=== PATIENT | male | born 1945 | race Caucasian/White ===

== ENCOUNTER 2023-10-08 21:30 | Emergency (ER) | payer OTHER ==
[~2023-10-08] VITALS: Ht 165.1 cm; Wt 83.9 kg
[2023-10-08 21:42] VITALS: BP 177/99
[2023-10-08] MEDS ORDERED: AMLO10 PO (21:43)
[2023-10-08] MEDS ORDERED: LIPITOR10 MG PO (21:44)
[2023-10-08] MEDS ORDERED: COREG6.25 MG PO (21:44)
[2023-10-08] MEDS ORDERED: LISI20 PO (21:44)
[2023-10-08] MEDS ORDERED: TORS10 PO (21:45)
[2023-10-08] MEDS ORDERED: TAMS.4ER PO (21:45)
[2023-10-08] MEDS ORDERED: ZYRTEC10 M1 PO (21:45)
== END 2023-10-08 21:51 | disposition home or self-care (01) ==
LOC: ER 21:30
DX: I10 Essential (primary) hypertension (principal); Z79.899 Other long term (current) drug therapy; E78.5 Hyperlipidemia, unspecified
CPT/HCPCS: 99282

== ENCOUNTER 2023-12-13 15:25 | Emergency (ER) | payer OTHER ==
[~2023-12-13] VITALS: Ht 162.6 cm; Wt 90.7 kg
[~2023-12-13 15:25] MED LIST: AMLO10 PO; COREG6.25 MG PO; LIPITOR10 MG PO; LISI20 PO; TAMS.4ER PO; TORS10 PO; ZYRTEC10 M1 PO
[2023-12-13] MEDS ORDERED: Acetaminophen 500 MG Tab PO ONE (15:40)
[2023-12-13] MEDS ORDERED: NS 1,000 ML IV SCH (15:40)
[2023-12-13 15:58] LABS: BASOPHILS ABSOLUTE AUTO 0.02 K/mm3 (0.00-0.23); BASOPHILS PERCENT AUTO 0 % (0-2); EOSINOPHILS PERCENT AUTO 0 % (0-6); Hematocrit 41.1 % (37.0-53.0); Hemoglobin 14.2 g/dL (13.5-17.5); IMMATURE GRAN ABSOLUTE AUTO 0.05 K/mm3 (0.00-0.10); IMMATURE GRAN PERCENT AUTO 1 % (0-1); LYMPHOCYTES ABSOLUTE AUTO 0.29 K/mm3 (0.84-5.20); LYMPHOCYTES PERCENT AUTO 4 % (21-46); MONOCYTES ABSOLUTE AUTO 0.09 K/mm3 (0.16-1.47); MONOCYTES PERCENT AUTO 1 % (4-13); Mean Corpuscular HGB 30.8 pg (26.0-34.0); Mean Corpuscular HGB Conc 34.5 g/dL (31.5-36.5); Mean Corpuscular Volume 89 fL (80-100); Mean Platelet Volume 10.3 fL (9.1-12.4); NEUTROPHILS ABSOLUTE AUTO 7.66 K/mm3 (1.96-9.15); NEUTROPHILS PERCENT AUTO 95 % (41-73); Platelet Count 130 K/mm3 (150-400); RDW Coefficient Variation 14.2 % (11.7-14.2); RDW Standard Deviation 46.2 fL (35.1-46.3); Red Blood Cell Count 4.61 M/mm3 (4.30-5.90); White Blood Cell Count 8.11 K/mm3 (4.00-11.30)
[2023-12-13 16:17] LABS: Albumin, Blood 3.4 g/dL (3.4-5.0); Albumin/Globulin Ratio 0.9 (0.8-1.8); Bilirubin, Total 4.4 mg/dL (0.1-1.0); Bun/Creatinine Ratio 15.9 (12.0-20.0); Calcium, Blood 8.3 mg/dL (8.5-10.1); Creatinine, Blood 1.82 mg/dL (0.60-1.20); Globulin, Blood 3.6 g/dL (2.2-4.0); Magnesium, Blood 1.5 mg/dL (1.6-2.4); Potassium, Blood 3.1 mmol/L (3.5-5.5)
[2023-12-13 16:19] LABS: Source, Urine Clean Catch
[2023-12-13 16:22] LABS: Appearance, Urine Clear (Clear); Bilirubin, Urine Neg (Neg); Blood, Urine 3+ (Neg); Color, Urine Yellow (P-Yellow); Glucose Qualitative, Urine 1+ (Neg); Ketones, Urine Neg (Neg); Leukocyte Esterase, Urine Neg (Neg); Nitrite, Urine Neg (Neg); Protein, Urine 3+ (Neg); Urobilinogen, Urine NORM (Normal)
[2023-12-13 16:29] LABS: Bacteria Few /hpf; Squamous Epithelial Cells Rare /hpf (Few)
[2023-12-13 16:30] LABS: Amorphous Light (0-Heavy); Renal Epithelial Rare /hpf (0-Rare); White Blood Cells, Urine 0-2 /hpf (0-5)
[2023-12-13 18:00] VITALS: BP 107/56
== END 2023-12-13 18:51 | disposition home or self-care (01) ==
LOC: ER 15:25
PROVIDERS: Emergency Medicine
DX: T67.5XXA Heat exhaustion, unspecified, initial encounter (principal); I12.9 Hypertensive chronic kidney disease with stage 1 through stage 4 chronic kidney disease, or unspecified chronic kidney disease; N18.9 Chronic kidney disease, unspecified; R94.5 Abnormal results of liver function studies; E78.5 Hyperlipidemia, unspecified; Z79.899 Other long term (current) drug therapy
CPT/HCPCS: 36415; 51702; 70450; 71045; 80053; 81001; 82550; 83605; 83735; 85025; 87040; 87077; 87186; 93005; 93010; 96360; 96361; 99285-25; A9270; J7030

== ENCOUNTER 2023-12-16 16:56 | Emergency (ER) | payer OTHER ==
[~2023-12-16] VITALS: Ht 165.1 cm; Wt 80.3 kg
[2023-12-16 21:27] LABS: Influenza A, PCR NEGATIVE (NEGATIVE); Influenza B, PCR NEGATIVE (NEGATIVE); Resp Syncytial Virus, PCR NEGATIVE (NEGATIVE); SARS-Cov-2 (COVID-19) PCR, MMC NEGATIVE (NEGATIVE)
[2023-12-16 22:00] VITALS: BP 163/84
== END 2023-12-16 22:57 | disposition short-term general hospital (02) ==
LOC: ER 16:56
PROVIDERS: Emergency Medicine
DX: K80.70 Calculus of gallbladder and bile duct without cholecystitis without obstruction (principal); R17 Unspecified jaundice; I10 Essential (primary) hypertension; E78.5 Hyperlipidemia, unspecified; Z79.899 Other long term (current) drug therapy; T67.01XA Heatstroke and sunstroke, initial encounter; N40.0 Benign prostatic hyperplasia without lower urinary tract symptoms; R55 Syncope and collapse; R82.998 Other abnormal findings in urine
CPT/HCPCS: 0241U; 36415; 74177; 80053; 80061; 82550; 83690; 84153; 84154; 84443; 85025; 87077; 87086; 87186; 99284-25; Q9967

== ENCOUNTER 2024-01-01 06:05 | Day surgery (SDC) | payer OTHER ==
[2024-01-01] VITALS (12 sets, daily range): BP systolic 124–162; BP diastolic 62–75
[~2024-01-01] VITALS: Ht 160 cm; Wt 80.8 kg
[2024-01-01] MEDS ORDERED: CefOXitin Sodium 2,000 MG in NS 50 ML IV SCH (06:20)
[2024-01-01] MEDS ORDERED: Lactated Ringer's 1,000 ML IV SCH (06:20)
[2024-01-01] MEDS ORDERED: Indocyanine Green 25 MG Vial IV ONE (06:20)
[2024-01-01] MEDS ORDERED: Fosinopril Sodi40 MG PO (06:40)
[2024-01-01] MEDS ORDERED: Dexmedetomidine HCL 200 MCG / 2 ML ONE ×2 (07:04→07:13)
--- NOTE | 2024-01-01 07:04 | NUR ---
ANESTHESIA PROVIDER, MILO TONG, AT BEDSIDE AND DISCUSSED IF CHEM BG NEEDED BASED ON PATIENT'S HX. MILO STATES NO CHEM BG NEEDED TODAY.
[2024-01-01] MEDS ORDERED: propofoL 40 ML IV ONE (07:07)
[2024-01-01] MEDS ORDERED: FentaNYL Citrate 50 MCG/ML 5 ML Injection ONE (07:07)
[2024-01-01] MEDS ORDERED: Lidocaine HCl 2% 20 ML MDV ONE (07:07)
[2024-01-01] MEDS ORDERED: Rocuronium Bromide 10 MG/ML 5ML Injection IV ONE ×2 (07:07→08:40)
[2024-01-01] MEDS ORDERED: EpiNEPhrine 1 MG/1 ML 1ML Vial ONE (07:23)
[2024-01-01] MEDS ORDERED: Bupivacaine 0.5% Inj 10 ML Vial ONE (07:26)
--- NOTE | 2024-01-01 07:37 | NUR ---
Patient States Post-Procedure ride home has been arranged with his friend, Curtis.
[2024-01-01] MEDS ORDERED: Dexamethasone Sod Phos 10 MG/ML 1ML VIAL ONE (07:57)
[2024-01-01] MEDS ORDERED: Ondansetron HCl 2 MG / ML 2ML Vial ONE (07:58)
[2024-01-01] MEDS ORDERED: ePHEDrine Sulfate 50 MG/ML 1ML Injection ONE (08:03)
[2024-01-01] MEDS ORDERED: Sugammadex Sodium 200 MG/2ML SDV (100 MG/ML) ONE ×2 (09:37→09:40)
[2024-01-01] MEDS ORDERED: OxyCODONE 5 mg/Acetamin 325 mg TABLET PO PRN (10:00)
--- NOTE | 2024-01-01 11:55 | NUR ---
Discharge instructions reviewed with patient. Patient verbalizes understanding. Copy given to patient to take home. Discharged via wheelchair to private car for ride home. Advance directive placed in discharge envelope along with discharge instructions, and prescription for oxycodone. Glasses provided to patient along with personal belongings.
--- NOTE | 2024-01-11 10:22 | NUR ---
01/11/24 1022 Samir Campuzano 01/01/24 2G ANCEF GIVEN BY ANESTHESIA AT 0750
== END 2024-01-01 11:40 | disposition home or self-care (01) ==
LOC: ORSCMMR 06:05 → ORD 07:30 → ORSCMMR 11:40
PROVIDERS: Surgery
PROC: 0DNU4ZZ Release Omentum, Percutaneous Endoscopic Approach (ICD-10-PCS; principal; 2024-01-01 07:30)
PROC: 8E0W4CZ Robotic Assisted Procedure of Trunk Region, Percutaneous Endoscopic Approach (ICD-10-PCS; principal; 2024-01-01 07:30)
PROC: 0FT44ZZ Resection of Gallbladder, Percutaneous Endoscopic Approach (ICD-10-PCS; principal; 2024-01-01 07:30)
PROC: 0FB04ZX Excision of Liver, Percutaneous Endoscopic Approach, Diagnostic (ICD-10-PCS; principal; 2024-01-01 07:30)
DX: K80.10 Calculus of gallbladder with chronic cholecystitis without obstruction (principal); K82.1 Hydrops of gallbladder; K66.0 Peritoneal adhesions (postprocedural) (postinfection); E11.22 Type 2 diabetes mellitus with diabetic chronic kidney disease; I12.9 Hypertensive chronic kidney disease with stage 1 through stage 4 chronic kidney disease, or unspecified chronic kidney disease; N18.30 Chronic kidney disease, stage 3 unspecified; Z79.899 Other long term (current) drug therapy
CPT/HCPCS: 88304; 88307; A9270; J0171; J0694; J1100; J2405; J2704; J3010; J7120

== ENCOUNTER 2024-07-15 20:12 | Emergency (ER) | payer OTHER ==
[~2024-07-15] VITALS: Ht 165.1 cm; Wt 77.1 kg
[~2024-07-15 20:12] MED LIST changes: +Fosinopril Sodi40 MG PO
[2024-07-15] MEDS ORDERED: Acetaminophen 500 MG Tab PO ONE (20:35)
[2024-07-15 20:44] LABS: Source, Urine Voided
[2024-07-15 20:50] LABS: Bilirubin, Urine Neg (Neg); Blood, Urine 1+ (Neg); Color, Urine Yellow (P-Yellow); Glucose Qualitative, Urine Neg (Neg); Ketones, Urine Neg (Neg); Leukocyte Esterase, Urine Neg (Neg); Nitrite, Urine Neg (Neg); Protein, Urine 3+ (Neg); Specific Gravity, Urine 1.015 (1.003-1.022); Urobilinogen, Urine NORM (Normal); pH, Urine 6.5 (5.0-8.0)
[2024-07-15 20:53] LABS: Albumin, Blood 3.4 g/dL (3.4-5.0); Albumin/Globulin Ratio 0.8 (0.8-1.8); Bilirubin, Total 0.5 mg/dL (0.1-1.0); Bun/Creatinine Ratio 16.2 (12.0-20.0); Calcium, Blood 8.9 mg/dL (8.5-10.1); Creatinine, Blood 1.54 mg/dL (0.60-1.20); Potassium, Blood 4.1 mmol/L (3.5-5.5); Total Protein, Blood 7.4 g/dL (6.4-8.2)
[2024-07-15 21:08] LABS: BASOPHILS ABSOLUTE AUTO 0.06 K/mm3 (0.00-0.23); BASOPHILS PERCENT AUTO 1 % (0-2); EOSINOPHILS ABSOLUTE AUTO 0.12 K/mm3 (0.00-0.68); EOSINOPHILS PERCENT AUTO 2 % (0-6); Hematocrit 41.3 % (37.0-53.0); Hemoglobin 14.4 g/dL (13.5-17.5); IMMATURE GRAN ABSOLUTE AUTO 0.02 K/mm3 (0.00-0.10); IMMATURE GRAN PERCENT AUTO 0 % (0-1); LYMPHOCYTES ABSOLUTE AUTO 0.78 K/mm3 (0.84-5.20); LYMPHOCYTES PERCENT AUTO 11 % (21-46); MONOCYTES ABSOLUTE AUTO 1.21 K/mm3 (0.16-1.47); MONOCYTES PERCENT AUTO 17 % (4-13); Mean Corpuscular HGB 31.6 pg (26.0-34.0); Mean Corpuscular HGB Conc 34.9 g/dL (31.5-36.5); Mean Corpuscular Volume 91 fL (80-100); Mean Platelet Volume 10.9 fL (9.1-12.4); NEUTROPHILS ABSOLUTE AUTO 5.06 K/mm3 (1.96-9.15); NEUTROPHILS PERCENT AUTO 70 % (41-73); Platelet Count 142 K/mm3 (150-400); RDW Coefficient Variation 14.4 % (11.7-14.2); RDW Standard Deviation 47.8 fL (35.1-46.3); Red Blood Cell Count 4.56 M/mm3 (4.30-5.90); White Blood Cell Count 7.25 K/mm3 (4.00-11.30)
[2024-07-15 21:16] LABS: Appearance, Urine Hazy (Clear)
[2024-07-15 21:17] LABS: Amorphous Light (0-Heavy); Bacteria Mod /hpf; Hyaline Casts 0-2 /lpf (0-2); Mucus Light (0-Heavy); Squamous Epithelial Cells Rare /hpf (Few); White Blood Cells, Urine 0-2 /hpf (0-5)
[2024-07-15 21:23] LABS: Influenza B, PCR NEGATIVE (NEGATIVE); Resp Syncytial Virus, PCR NEGATIVE (NEGATIVE); SARS-Cov-2 (COVID-19) PCR, MMC NEGATIVE (NEGATIVE)
[2024-07-15 21:26] LABS: Influenza A, PCR POSITIVE (NEGATIVE)
[2024-07-15] MEDS ORDERED: ONDA4ODT MM (22:40)
[2024-07-15 23:00] VITALS: BP 134/76
== END 2024-07-15 23:09 | disposition home or self-care (01) ==
LOC: ER 20:12
PROVIDERS: Emergency Medicine
DX: J10.1 Influenza due to other identified influenza virus with other respiratory manifestations (principal); I12.9 Hypertensive chronic kidney disease with stage 1 through stage 4 chronic kidney disease, or unspecified chronic kidney disease; N18.9 Chronic kidney disease, unspecified; E78.5 Hyperlipidemia, unspecified; Z79.899 Other long term (current) drug therapy
CPT/HCPCS: 0241U; 80053; 81001; 83690; 85025; 87086; 93005; 93010; 99284-25; A9270